=== PATIENT | male | born 1960 | race Caucasian/White ===

== ENCOUNTER 2017-03-18 06:04 | Day surgery (SDC) | payer OTHER ==
[~2017-03-18] VITALS: Ht 165.1 cm; Wt 75.5 kg
[2017-03-18 06:47] VITALS: Ht 165.1 cm; Wt 75.5 kg
--- NOTE | 2017-03-18 08:20 | OPPN ---
Date/Time of Note Date/Time of Note DATE: 03/18/17 TIME: 08:18 Operative Report Preoperative Diagnosis Screening Postoperative Diagnosis Transverse colon polyp was removed Mild diverticulosis of the colon Internal hemorrhoids Operation/Procedure Performed Colonoscopy and biopsy Surgeon see signature line assistant analyst None Anesthesia: moderate sedation Estimated blood loss: none Transfusion Required none Specimen Transverse colon polyp Grafts/Implants none Complications none BRITNEY BAUTISTA MD Mar 18, 2017 08:20
[2017-03-18] MEDS ORDERED: MIDAZOLAM 1 MG/ML 2 ML INJ ONE ×2 (08:22→08:23)
[2017-03-18] MEDS ORDERED: FENTAnyl 50 MCG/ML VIAL ONE (08:23)
[2017-03-18 08:41] VITALS: BP 109/66; PULSE 51; RESP 18
--- NOTE | 2017-03-18 14:10 | GILP ---
DATE OF PROCEDURE: 03/18/2017 NAME OF PROCEDURES: Colonoscopy and biopsy. SURGEON: Bronwyn Casillas MD PREOPERATIVE DIAGNOSIS: Screening colonoscopy. POSTOPERATIVE DIAGNOSES 1. Colonoscopy all the way to the cecum. 2. Small transverse colon polyp was removed using the biopsy forceps. 3. Mild diverticulosis of the colon. 4. Internal hemorrhoids. INDICATION FOR THE PROCEDURE: Mr. Darrion Hatfield is a 57-year-old male patient who was scheduled for nc reening colonoscopy. The procedure and possible complications are well explained to the patient, he understood and consen lew to the procedure. DESCRIPTION OF PROCEDURE: Under the influence of fentanyl and Versed, the colonoscope was carefully introduced in the rectum and under direct vision it was advanced all the way to the cecum. FINDINGS: The patient had a small transverse colon polyp and it was removed using the biopsy forcep s. He had mild diverticulosis of the colon and internal hemorrhoids. He tolerated the procedure very well and there was no complication from the procedure. At the end o f the procedure, he was awake with stable vital signs and he was discharged home to the care of his family. IMPRESSION: Please see postoperative diagnosis. PLAN: 1. Await histopathology report. 2. Next screening colonoscopy in 5 years. Dictated By: BRONWYN UMAÑA/YEISON Conf#: [id number] DID#: [id number]
== END 2017-03-18 11:57 | disposition home or self-care (01) ==
LOC: GIL 06:04
PROVIDERS: ATTEND Internal Medicine Gastroenterology
DX: Z12.11 Encounter for screening for malignant neoplasm of colon (principal); D12.3 Benign neoplasm of transverse colon; K57.90 Diverticulosis of intestine, part unspecified, without perforation or abscess without bleeding; K64.8 Other hemorrhoids
CPT/HCPCS: 45380; J2250; J3010; Z7610; 88305